=== PATIENT | male | born 1960 | race Hispanic/Latino ===

== ENCOUNTER 2021-05-27 17:22 | Emergency (ER) | payer OTHER ==
[~2021-05-27] VITALS: Ht 177.8 cm; Wt 104.3 kg
[2021-05-27 17:29] VITALS: BP 183/97
[2021-05-27] MEDS ORDERED: AMOX/CLAV 875/125MG TAB PO SCH (18:30)
[2021-05-27] MEDS ORDERED: PREDNISONE 20 MG TABLET PO SCH (18:30)
[2021-05-27] MEDS ORDERED: ALBUTEROL INHALER 90MCG/INH IH SCH (18:30)
[2021-05-27] MEDS ORDERED: PRED20TA3 PO (19:06)
[2021-05-27] MEDS ORDERED: ALBU8.5H8 IH (19:06)
[2021-05-27] MEDS ORDERED: AMOX-429 PO (19:06)
[2021-05-27] MEDS ORDERED: CEFTRIAXONE 1G VIAL IM SCH (19:30)
[2021-05-27] MEDS ORDERED: LIDOCAINE HCL-MPF 1% 2ML VIAL ONE (19:33)
== END 2021-05-27 19:32 | disposition home or self-care (01) ==
LOC: EDH 17:22
DX: J02.0 Streptococcal pharyngitis (principal); J40 Bronchitis, not specified as acute or chronic; Z20.822 Contact with and (suspected) exposure to COVID-19; Z79.52 Long term (current) use of systemic steroids; Z79.899 Other long term (current) drug therapy
CPT/HCPCS: 71045; 87635; 87804 ×2; 87880; 96372; 99284; C9803; J0696; J3490

== ENCOUNTER 2021-07-14 07:42 | Emergency (ER) | payer OTHER ==
[~2021-07-14] VITALS: Ht 177.8 cm; Wt 102.1 kg
[~2021-07-14 07:42] MED LIST: ALBU8.5H8 IH; AMOX-429 PO; PRED20TA3 PO
[2021-07-14 08:07] VITALS: BP 169/88
[2021-07-14] MEDS ORDERED: D-ME118S47 PO (09:14)
[2021-07-14] MEDS ORDERED: METH4TAB3 PO (09:14)
[2021-07-14] MEDS ORDERED: ALBU8.5H8 IH (09:14)
[2021-07-14] MEDS ORDERED: GUAIFENESIN-DM 200/20 MG 10 ML PO ONE (09:30)
[2021-07-14] MEDS ORDERED: DEXAMETHASONE 4 MG TAB PO SCH (09:30)
== END 2021-07-14 09:47 | disposition home or self-care (01) ==
LOC: EDH 07:42
DX: U07.1 COVID-19 (principal); Z79.52 Long term (current) use of systemic steroids; Z79.899 Other long term (current) drug therapy
CPT/HCPCS: 71045; 87635; 87804 ×2; 99284; C9803

== ENCOUNTER → 2022-07-19 | Outpatient (CLI) | payer OTHER ==
[~2022-07-19] MED LIST changes: +AEC81 PO; -ALBU8.5H8 IH; -AMOX-429 PO; +APIX5TAB PO; +ATOR40TA69 PO; +EMPA10TA PO; +LOSA25TA2 PO; +METO25TA3 PO; +PANT40TA54 PO; -PRED20TA3 PO
== END | disposition home or self-care (01) ==
LOC: SHCH 08:18
PROVIDERS: ATTEND Internal Medicine Cardiovascular Disease
DX: I11.0 Hypertensive heart disease with heart failure (principal); I50.22 Chronic systolic (congestive) heart failure; I51.3 Intracardiac thrombosis, not elsewhere classified; E78.5 Hyperlipidemia, unspecified; Z95.1 Presence of aortocoronary bypass graft
CPT/HCPCS: 93306

== ENCOUNTER 2022-10-12 05:43 | Day surgery (SDC) | payer OTHER ==
[2022-10-10 12:59] LABS: BASOPHILS % (AUTO) 0.5 % (0.0-5.0); EOSINOPHILS % (AUTO) 1.3 % (0.0-8.0); HEMATOCRIT 50.2 % (42-54); LYMPHOCYTES % (AUTO) 23.4 % (21.0-51.0); MEAN CORPUSCULAR HEMOGLOBIN 30.3 pg (27.0-33.0); MEAN CORPUSCULAR HGB CONC 32.5 g/dL (32.0-36.0); MEAN CORPUSCULAR VOLUME 93.3 fL (79-99); MONOCYTES % (AUTO) 8.9 % (3.0-13.0); NEUTROPHILS % (AUTO) 65.6 % (40.0-77.0); PLATELET COUNT (AUTO) 181 K/uL (130-400); RED BLOOD CELL COUNT(AUTO) 5.38 MIL/uL (4.50-6.20); RED CELL DISTRIBUTION WIDTH 14.7 % (11.0-15.5); WHITE BLOOD COUNT (AUTO) 9.2 K/uL (4.8-10.8)
[2022-10-10 13:03] VITALS: BP 140/79
[2022-10-10 13:08] LABS: POTASSIUM 4.7 mmol/L (3.5-5.1)
[2022-10-10 13:12] LABS: PROTHROMBIN TIME 10.9 SEC (9.6-11.6)
[2022-10-10 13:13] LABS: PARTIAL THROMBOPLASTIN TIME 30.6 SEC (26.3-35.5)
[~2022-10-12] VITALS: Ht 177.8 cm; Wt 110.4 kg
[2022-10-12] VITALS (10 sets, daily range): BP systolic 111–158; BP diastolic 68–82
[~2022-10-12 05:43] MED LIST changes: +CEFAZOLIN SODIUM 2 GM VIAL IVPB SCH; -LOSA25TA2 PO; +METO-408 PO; -METO25TA3 PO; -PANT40TA54 PO; +SACU1TAB4 PO
[2022-10-12] MEDS ORDERED: 0.9%NACL 1000ML 1,000 ML IV ONE (06:20)
[2022-10-12] MEDS ORDERED: MIDAZOLAM HCL 1 MG/ML 2ML VIAL ONE ×2 (07:13→08:01)
[2022-10-12] MEDS ORDERED: LIDOCAINE HCL 1% MDV 50ML VIAL ONE (07:13)
[2022-10-12] MEDS ORDERED: MEPERIDINE-PF 25 MG/ML SYG ONE ×2 (07:14→08:01)
[2022-10-12] MEDS ORDERED: IODIXANOL 320 MG/ML 100 ML VIAL ONE (07:14)
[2022-10-12] MEDS ORDERED: CEFAZOLIN SODIUM 1 GM VIAL ONE (07:15)
[2022-10-12] MEDS ORDERED: BUPIVACAINE/PF 0.25% 10ML VIAL IJ ONE (07:15)
[2022-10-12] MEDS ORDERED: TRAM50TA4 PO (09:53)
[2022-10-12] MEDS ORDERED: ACETAMINOPHEN 500 MG TABLET PO PRN (10:00)
[2022-10-12] MEDS ORDERED: ACETAMINOPHEN WITH CODEINE 1 TAB TAB PO PRN (10:00)
== END 2022-10-12 13:30 | disposition home or self-care (01) ==
LOC: DAH 05:43
PROVIDERS: ATTEND Internal Medicine Cardiovascular Disease
DX: I25.5 Ischemic cardiomyopathy (principal); I44.7 Left bundle-branch block, unspecified; I11.0 Hypertensive heart disease with heart failure; I50.42 Chronic combined systolic (congestive) and diastolic (congestive) heart failure; I48.0 Paroxysmal atrial fibrillation; I25.10 Atherosclerotic heart disease of native coronary artery without angina pectoris; E78.5 Hyperlipidemia, unspecified; Z79.899 Other long term (current) drug therapy; Z79.01 Long term (current) use of anticoagulants; Z95.5 Presence of coronary angioplasty implant and graft; Z98.890 Other specified postprocedural states; Z98.42 Cataract extraction status, left eye; Z98.41 Cataract extraction status, right eye; Z82.49 Family history of ischemic heart disease and other diseases of the circulatory system; Z80.8 Family history of malignant neoplasm of other organs or systems; Z79.82 Long term (current) use of aspirin
CPT/HCPCS: 80048; 85025; 85610; 85730; 36415; 93005; 33249; 33225; 82948 ×2; 71045; C1769; C1882; C1900; C1896; C1895; J0690; J7030; J2250 ×2; J3490 ×2; J2175 ×2; Q9967; A4215; A6251; A4222; A4221; A4663; A4216; A6258; A4606; A4223 ×3; 99156; 99157

== ENCOUNTER → 2023-03-14 | Outpatient (CLI) | payer OTHER ==
[~2023-03-14] MED LIST changes: -CEFAZOLIN SODIUM 2 GM VIAL IVPB SCH; +TRAM50TA4 PO
[2023-03-14 12:24] LABS: POTASSIUM 4.6 mmol/L (3.5-5.1)
== END | disposition home or self-care (01) ==
LOC: LAB 10:26
PROVIDERS: ATTEND Internal Medicine Cardiovascular Disease
DX: I10 Essential (primary) hypertension (principal)
CPT/HCPCS: 36415; 80048

== ENCOUNTER → 2023-03-21 | Outpatient (CLI) | payer OTHER ==
[2023-03-21 12:46] LABS: POTASSIUM 4.4 mmol/L (3.5-5.1)
== END | disposition home or self-care (01) ==
LOC: LAB 10:45
PROVIDERS: ATTEND Internal Medicine Cardiovascular Disease
DX: I10 Essential (primary) hypertension (principal)
CPT/HCPCS: 36415; 80048

== ENCOUNTER → 2023-03-28 | Outpatient (CLI) | payer OTHER ==
[2023-03-28 12:42] LABS: POTASSIUM 4.5 mmol/L (3.5-5.1)
== END | disposition home or self-care (01) ==
LOC: LAB 10:30
PROVIDERS: ATTEND Internal Medicine Cardiovascular Disease
DX: I10 Essential (primary) hypertension (principal)
CPT/HCPCS: 36415; 80048